=== PATIENT | female | born 1955 | race Caucasian/White ===

== ENCOUNTER 2025-02-02 09:19 | Outpatient (CLI) | payer MEDICARE ==
--- NOTE | 2025-02-02 12:43 | RADIOLOGY REPORT ---
INDICATION: CHRONIC VIRAL HEPATITIS B TECHNIQUE: Multiple real-time sonographic images of the abdomen were obtained. COMPARISON: None FINDINGS: The liver is homogenous in echogenicity. The liver measures 13cm. No intrahepatic biliary ductal dilatation is noted. The gallbladder wall measures 0.1 cm and is unremarkable. No gallstones or sludge is seen. The commo n duct measures 0.4 cm and is unremarkable. No pericholecystic fluid is noted. The right kidney measures 9cm. No hydronephrosis. The pancreas is not well visualized due to obscuration from bowel gas. The visualized portions of the IVC and aorta are grossly unremarkable. IMPRESSION: Normal exam of the abdomen.
== END 2025-02-03 23:59 | disposition home or self-care (01) ==
LOC: RAD 09:19
PROVIDERS: ATTEND Preventive Medicine Public Health & General Preventive Medicine
DX: B18.1 Chronic viral hepatitis B without delta-agent (principal)
CPT/HCPCS: 76700